=== PATIENT | female | born 1945 | race Caucasian/White ===

== ENCOUNTER → 2016-10-27 | Outpatient (CLI) | payer OTHER, BC ==
[~2016-10-27] VITALS: Ht 149.9 cm; Wt 66.0 kg
[~2016-10-27] MED LIST: ASPIRIN81 M2 PO; CITRACAL W/V1 TABLE1 PO; MULTIPLE VITAM1 EAC1 PO; PERDIEM15 MG PO; PRAVASTATIN SOD20 MG PO; RANITIDINE HCL150 MG PO; VERAPAMIL HCL240 MG PO
[2016-10-27 16:37] VITALS: BP 125/65
== END | disposition home or self-care (01) ==
LOC: IVINF 16:29
DX: M81.0 Age-related osteoporosis without current pathological fracture (principal)
CPT/HCPCS: 96365; J3489

== ENCOUNTER → 2017-07-11 | Outpatient (CLI) | payer OTHER, BC | END | disposition home or self-care (01) | DX: M16.11 Unilateral primary osteoarthritis, right hip (principal); R26.2 Difficulty in walking, not elsewhere classified; M25.551 Pain in right hip; M25.651 Stiffness of right hip, not elsewhere classified; M62.81 Muscle weakness (generalized); Z74.1 Need for assistance with personal care | CPT/HCPCS: 97161 GP; 97165 GO; 97530 GP; 97535 GO; G8978 GP; G8979 GP; G8980 GP; G8987 GO; G8988 GO; G8989 GO ==

== ENCOUNTER 2017-08-07 22:01 | Inpatient (IN) | payer OTHER, BC ==
[~2017-08-07] VITALS: Ht 162.6 cm; Wt 60.9 kg
[~2017-08-07 22:01] MED LIST changes: +ACID CONTROL150 MG PO; +FEOSOL325 MG PO; +HYDROCODON-ACE1 EAC7 PO; +RECLAST5 MG/100 M IV; +XANAX0.5 MG PO
[2017-08-08 06:18] VITALS: BP 119/66
[2017-08-08 12:07] VITALS: BP 90/52
[2017-08-08 15:34] VITALS: BP 86/53
[2017-08-08 17:19] VITALS: BP 105/57
[2017-08-08 20:26] VITALS: BP 92/51
[2017-08-08 21:25] VITALS: BP 94/52
[2017-08-09 00:05] VITALS: BP 103/49
[2017-08-09 04:00] VITALS: BP 100/50
[2017-08-09 05:20] LABS: HEMATOCRIT 31.5 % (36.0-46.0); MCV 96.6 FL (83-99)
[2017-08-09 05:29] LABS: HEMOGLOBIN 10.4 G/DL (11.9-15.5)
[2017-08-09 08:00] VITALS: BP 103/54
[2017-08-09 12:25] VITALS: BP 100/57
[2017-08-09 16:01] VITALS: BP 110/53
[2017-08-09 20:01] VITALS: BP 100/52
[2017-08-10 00:30] VITALS: BP 113/51
[2017-08-10 04:18] VITALS: BP 104/58
[2017-08-10 06:28] LABS: HEMATOCRIT 33.2 % (36.0-46.0); HEMOGLOBIN 11.1 G/DL (11.9-15.5)
[2017-08-10 08:11] VITALS: BP 114/61
[2017-08-10] MEDS ORDERED: ELIQUIS2.5 MG PO (08:30)
[2017-08-10 12:18] VITALS: BP 107/60
== END 2017-08-10 15:10 | disposition home health service (06) | DRG 470 ==
LOC: ENRESERV 22:01 → 2SOUTH 08-08 05:36 → 3WEST 08-08 11:38 → 2SOUTH 08-08 13:10 → 3WEST 08-10 15:10
PROVIDERS: Orthopaedic Surgery
DX: M16.11 Unilateral primary osteoarthritis, right hip (principal); M24.7 Protrusio acetabuli; I08.1 Rheumatic disorders of both mitral and tricuspid valves; I10 Essential (primary) hypertension; K21.9 Gastro-esophageal reflux disease without esophagitis; E78.5 Hyperlipidemia, unspecified; F41.9 Anxiety disorder, unspecified; G89.29 Other chronic pain; M54.9 Dorsalgia, unspecified; I69.398 Other sequelae of cerebral infarction; R20.0 Anesthesia of skin
CPT/HCPCS: 85014; 85018; 87641; C1713; J0131; J0690; J1170; J2250; J7050; J7120; Q0175; S0020